=== PATIENT | female | born 1990 | race Asian ===

== ENCOUNTER 2021-03-20 14:42 | Outpatient (CLI) | payer OTHER ==
[2021-03-20 15:58] LABS: HCT - HEMATOCRIT 36.6 % (37.0-47.0); HGB - HEMOGLOBIN 12.5 g/dL (12.0-16.0); MEAN CORPUSCULAR HEMOGLOBIN 31.3 pg (27.0-31.0); MEAN CORPUSCULAR HGB CONC 34.2 g/dL (32.0-36.0); MEAN CORPUSCULAR VOLUME 91.5 fL (81.0-99.0); MEAN PLATELET VOLUME 9.1 fL (7.9-10.8); RED CELL DISTRIBUTION WIDTH 11.8 % (12.0-15.0); WHITE BLOOD COUNT 10.7 x10^3/uL (4.8-10.8)
== END 2021-03-20 14:43 | disposition home or self-care (01) ==
LOC: LAB 14:42
PROVIDERS: ATTEND Obstetrics & Gynecology
DX: Z34.90 Encounter for supervision of normal pregnancy, unspecified, unspecified trimester (principal); Z36.89 Encounter for other specified antenatal screening
CPT/HCPCS: 36415; 82950; 85027

== ENCOUNTER 2021-03-29 08:21 | Outpatient (CLI) | payer OTHER ==
[2021-03-29 09:26] LABS: GTT GLUCOSE,FASTING 90 mg/dL (70-100)
== END 2021-03-29 08:22 | disposition home or self-care (01) ==
LOC: LAB 08:21
PROVIDERS: ATTEND Obstetrics & Gynecology
DX: Z34.90 Encounter for supervision of normal pregnancy, unspecified, unspecified trimester (principal)
CPT/HCPCS: 36415; 82951; 82952

== ENCOUNTER 2021-05-17 16:49 | Outpatient (CLI) | payer OTHER ==
[2021-05-17 22:48] LABS: CHLAMYDIA TRACHOMATIS DNA NEGATIVE (NEGATIVE); NEISSERIA GONORRHOEAE DNA NEGATIVE (NEGATIVE); TRICHOMONAS VAGINALIS DNA NEGATIVE (NEGATIVE)
== END 2021-05-17 16:50 | disposition home or self-care (01) ==
LOC: LAB 16:49
PROVIDERS: ATTEND Obstetrics & Gynecology
DX: Z36.85 Encounter for antenatal screening for Streptococcus B (principal)
CPT/HCPCS: 87491; 87591; 87661; 87797

== ENCOUNTER 2021-06-08 06:34 | Inpatient (IN) | payer OTHER ==
[2021-06-08 07:26] LABS: RUPTURE OF MEMBRANES PLUS POSITIVE (NEGATIVE)
[2021-06-08] MEDS ORDERED: METHYLERGONOVINE 0.2 MG/ML VIAL IM PRN (07:38)
[2021-06-08] MEDS ORDERED: OXYTOCIN 10 UNIT/ML VIAL IM PRN (07:38)
[2021-06-08] MEDS ORDERED: SODIUM CHLORIDE FLUSH 0.9% 10 ML SYRINGE IVP PRN ×2 (07:38→10:11)
[2021-06-08] MEDS ORDERED: LABETALOL 20 MG/4 ML SYRINGE IVP PRN (07:38)
[2021-06-08] MEDS ORDERED: TERBUTALINE 1 MG/ML VIAL SUBQ PRN (07:38)
[2021-06-08] MEDS ORDERED: OXYTOCIN/SODIUM CHLORIDE 500 ML IV PRN ×2 (07:38→10:11)
[2021-06-08] MEDS ORDERED: TRANEXAMIC ACID IN NACL 1,000 MG/100 ML BAG IV PRN (07:38)
[2021-06-08] MEDS ORDERED: miSOPROStoL 200 MCG TABLET PR PRN (07:38)
[2021-06-08] MEDS ORDERED: CARBOPROST TROMETHAMINE 250 MCG/ML AMP IM PRN (07:38)
[2021-06-08] MEDS ORDERED: miSOPROStoL 200 MCG TABLET BC PRN (07:38)
[2021-06-08] MEDS ORDERED: fentaNYL 100 MCG/2 ML VIAL IVP PRN ×2 (07:38→09:37)
[2021-06-08] MEDS ORDERED: LIDOCAINE-MPF 1% 30 ML VIAL ID PRN (07:38)
--- NOTE | 2021-06-08 07:38 | HISTORY & PHYSICAL EXAMINATION ---
Admit History - Visit Reason Visit Reason: Contractions, Membranes rupture - : 4 Parity: 1021 Care: positive: [facility] Risk/History: positive: None - Mother's Labs Mother's Blood Type: positive: O Mother's RH: positive: Positive GBS: positive: Group B Step Negative Rubella Status: positive: Non-immune - Other Maternal History Other Maternal History: HPI: 31-year-old -0-2-1 at 39 weeks 1 day gestation presenting for leaking of fluid and contractions since early this morning. She has contraction approximately 5 minutes. [place] a gush of fluid on the way to hospital today.. She has good movement. No WOO/BV or RUQP. No vaginal bleeding. Denies nausea and vomiting. Denies urinary urgency or dysuria. All other symptoms reviewed and were negative except per HPI. Course ERIC BY LMP: 06/14/2021 Initial U/S: 10/26/2020 22 wks 3 days c/w LMP ( 06/12/2021) FINAL ERIC: 06/14/2021 O POSITIVE /Rubella :NON- IMMUNE VZV : IMMUNE Gentic testing: QUAD : NEGATIVE Serum Int 1 NEGATIVE for Trisomy 18 Serum Int 2 NEGATIVE for open spina bifida FAS: Low lying placenta, face not well visualized. Follow up showed low lying placenta resolved and face WNL. Glucola: 184. 3hr GTT WNL 90, 161, 109, 112 Influenza : per patient 12/2020 Covid vaccine : x2- Pfizer, Booster TDAP 03/20/2021 GBS & GC/CT : 05/17/2021 NEGATIVE HSV: No history in self or partner Breast pump Rx : per patient has one MOD: Repeat at 39 weeks with tubal ligation. pp contraception: BTL at time of . PMH History of molar Seasonal allergies PSH section D&C Sinus surgery [place] teeth removal OB History -0-2-1 1. 01/08/2013, 8 weeks, spontaneous 2. 03/01/2018, 38 weeks 6 days, section, failure to progress, 8 pound 6 ounces 3. 04/2019, molar , D&C SH Denies tobacco, alcohol, drugs Family History Mother: Diabetes hypertension, hyperlipidemia Father: Hypertension, hyperlipidemia Maternal grandmother: Diabetes, hypertension, cataracts Paternal grandfather: Hyperlipidemia, hypertension Allergies None Medications . All vitamins Physical exam: General: Alert, oriented, no acute distress Head: Normal cephalic atraumatic Eyes: PERRLA, extraocular motions intact. Respiratory: Normal rate of respiration. No accessory muscle use, normal respiratory effort. Cardiovascular: Regular rate and rhythm Abdomen: Gravid, nontender, nondistended Extremities: Normal range of motion Neuro: Oriented x3. Normal movements Psych: Appropriate mood and affect. Normal judgment and insight SVE: 2/60/-3 FHT: 120 bpm baseline, moderate variability, accelerations present, no decelerations. [place]: Quiescent ROM plus: Positive Plan 31-year-old -0-2-1 at 39 weeks 1 day gestation with spontaneous rupture of membranes 1 with previous section. 1. Spontaneous rupture of membranes -Admit to L&D, admit labs, plan for repeat section -2 g cefazolin IV 2. Previous low transverse section x1 3. Desires sterility -Plan for bilateral salpingectomy at time of 4. 39 weeks gestation 5. History of molar -Will trend hCGs Physical - Abdominal Exam Vital Signs: Temp Pulse Resp BP Pulse Ox 97.9 F 82 20 118/69 06/08/21 06:57 06/08/21 06:57 06/08/21 06:57 06/08/21 06:57
--- NOTE | 2021-06-08 07:46 | ANESTHESIA ---
Pre-Anesthesia VS, & Labs - Diagnosis ruptured membranes with active labor , previous section - Procedure repeat c section, BTL Vital Signs: Temp Pulse Resp BP Pulse Ox 36.6 C 82 20 118/69 06/08/21 06:57 06/08/21 06:57 06/08/21 06:57 06/08/21 06:57 Height: 5 ft 4 in Weight (kg): 86.183 kg Body Mass Index: 32.5 BMI Classification: Obese - NPO >8 hours - Is Patient ?: Yes Home Medications and Allergies Active Medications Acetaminophen (Acetaminophen 500 Mg Tablet) 500 mg PO ONCE HIRO Carboprost Tromethamine (Carboprost Tromethamine 250 Mcg/Ml Amp) 250 mcg IM .ONCE PRN PRN Reason: Hemorrhage Fentanyl (Fentanyl 100 Mcg/2 Ml Vial) 50 mcg IVP Q1H PRN PRN Reason: Severe Pain (score 7-10) Oxytocin/Sodium Chloride (Pitocin/Sodium Chloride) 500 mls @ 999 mls/hr IV PRN PRN; Protocol PRN Reason: POST- HEMORR PREVENTION Tranexamic Acid (Tranexamic 1,000 Mg/100ml-Nacl) 1,000 mg in 100 mls @ 600 mls/hr IV Q30M PRN PRN Reason: EBL >1200mL and within 3hr Cefazolin Sodium 2 gm/ Sodium (Chloride) 50 mls @ 100 mls/hr IV ONCE ONE Stop: 06/08/21 08:09 Labetalol HCl (Labetalol 20 Mg/4 Ml Syringe) 20 - 80 mg IVP Q10M PRN; Protocol PRN Reason: SBP> or= 160 OR DBP> or= 110 Lidocaine HCl (Lidocaine-Mpf 1% 30 Ml Vial) 30 ml ID ONCE PRN PRN Reason: PERINEAL REPAIR Stop: 06/09/21 07:39 Methylergonovine Maleate (Methylergonovine 0.2 Mg/Ml Vial) 0.2 mg IM .ONCE PRN PRN Reason: Hemorrhage Misoprostol (Misoprostol 200 Mcg Tablet) 600 mcg BC .ONCE PRN PRN Reason: Hemorrhage Misoprostol (Misoprostol 200 Mcg Tablet) 800 mcg SC .ONCE PRN PRN Reason: Hemorrhage Oxytocin (Oxytocin 10 Unit/Ml Vial) 10 unit IM .ONCE PRN PRN Reason: Step One if no IV access. Sodium Chloride (Sodium Chloride Flush 0.9% 10 Ml Syringe) 10 ml IVP PRN PRN PRN Reason: NEEDED PER PROVIDER ORDERS Sodium Chloride (Sodium Chloride Flush 0.9% 10 Ml Syringe) 10 ml IVP Q8H HIRO Terbutaline Sulfate (Terbutaline 1 Mg/Ml Vial) 0.25 mg SUBQ ONCE PRN PRN Reason: Tachystole Allergies/Adverse Reactions: Allergies Allergy/AdvReac Type Severity Reaction Status Date / Time No Known Drug Allergies Allergy Verified 06/08/21 07:44 Anes History & Medical History - Anesthetic History Anesthesia Complications: reports: No previous complications Family history of Anesthesia Complications: Denies Family history of Malignant Hyperthermia: Denies - Medical History Cardiovascular: reports: None Pulmonary: reports: None - Surgical History Gynecologic: reports: section - Obstetrical History : 4 Parity: 1021 Events: reports: None Exam General: Alert, Oriented x3, Cooperative, No acute distress Dental: WNL Mouth Openin Fingerbreadth Neck Mobility: Normal Mallampati classification: II Plan Anesthesia Type: Spinal, Transverse Abdominis Plane (TAP) Block (if requested) Regional Block: Per Surgeon's request for Post Op pain control Consent for Procedure(s) Verified and Reviewed: Yes Code Status: Attempt Resuscitation ASA classification: 2-Mild systemic disease Is this case an emergency?: Yes (urgent)
[2021-06-08] MEDS ORDERED: MORPHINE PF 5 MG/10 ML VIAL ONE (07:53)
[2021-06-08] MEDS ORDERED: PHENYLEPHRINE 10 MG/ML VIAL ONE (07:56)
[2021-06-08] MEDS ORDERED: OXYTOCIN 10 UNIT/ML VIAL ONE (07:59)
[2021-06-08] MEDS ORDERED: ACETAMINOPHEN 500 MG TABLET PO ONE (08:00)
[2021-06-08] MEDS ORDERED: SODIUM CHLORIDE FLUSH 0.9% 10 ML SYRINGE IVP SCH ×2 (08:00→17:00)
[2021-06-08] MEDS ORDERED: ePHEDrine 50 MG/ML VIAL IVP ONE (08:06)
[2021-06-08 08:09] LABS: BASOPHILS % (AUTO) 0.4 %; EOSINOPHILS # (AUTO) 0.1 10^3/uL (0.0-0.7); HCT - HEMATOCRIT 40.8 % (37.0-47.0); HGB - HEMOGLOBIN 13.7 g/dL (12.0-16.0); LYMPHOCYTES # (AUTO) 1.3 10^3/uL (1.5-3.5); LYMPHOCYTES % (AUTO) 12.4 %; MEAN CORPUSCULAR HEMOGLOBIN 29.8 pg (27.0-31.0); MEAN CORPUSCULAR HGB CONC 33.6 g/dL (32.0-36.0); MEAN CORPUSCULAR VOLUME 88.7 fL (81.0-99.0); MEAN PLATELET VOLUME 9.8 fL (7.9-10.8); MONOCYTES # (AUTO) 0.7 10^3/uL (0.0-1.0); MONOCYTES % (AUTO) 6.7 %; NEUTROPHILS % (AUTO) 78.6 %; PLT - PLATELET COUNT 228 10^3/uL (130-450); RED CELL DISTRIBUTION WIDTH 13.7 % (12.0-15.0); WHITE BLOOD COUNT 10.2 x10^3/uL (4.8-10.8)
[2021-06-08] MEDS ORDERED: LACTATED RINGERS 1,000 ML ONE (08:21)
[2021-06-08] MEDS ORDERED: GABAPENTIN 300 MG CAPSULE PO SCH (09:00)
[2021-06-08] MEDS ORDERED: ePHEDrine 50 MG/ML VIAL IVP PRN ×2 (09:37→09:39)
[2021-06-08] MEDS ORDERED: ATROPINE ABBOJECT 1 MG/10 ML SYRINGE IVP PRN (09:37)
[2021-06-08] MEDS ORDERED: ONDANSETRON 4 MG/2 ML VIAL IVP PRN ×2 (09:37→09:39)
[2021-06-08] MEDS ORDERED: NALOXONE 0.4 MG/ML VIAL IVP PRN ×2 (09:37→09:39)
[2021-06-08] MEDS ORDERED: METOCLOPRAMIDE 10 MG/2 ML VIAL IVP PRN ×2 (09:37→09:39)
[2021-06-08] MEDS ORDERED: HYDROmorphone 0.5 MG/0.5 ML SYRINGE IVP PRN (09:37)
[2021-06-08] MEDS ORDERED: MORPHINE 2 MG/ML CARPUJECT IVP PRN (09:37)
[2021-06-08] MEDS ORDERED: NALBUPHINE 10 MG/ML AMP IVP PRN (09:39)
[2021-06-08] MEDS ORDERED: ROPIVACAINE 0.5% PF 20 ML AMPULE ONE (09:39)
[2021-06-08] MEDS ORDERED: diphenhydrAMINE INJ 50 MG/ML VIAL IVP PRN (09:39)
[2021-06-08] MEDS ORDERED: MORPHINE PF 5 MG/10 ML VIAL IT ONE (09:39)
[2021-06-08] MEDS ORDERED: LACTATED RINGERS 1,000 ML IV SCH ×2 (10:00→11:00)
[2021-06-08] MEDS ORDERED: SIMETHICONE CHEW 80 MG TABLET PO PRN (10:11)
--- NOTE | 2021-06-08 10:15 | OPERATIVE REPORT ---
Operative Report - General Admit Date: 06/08/21 Procedure Date: 06/08/21 Planned Procedure: Repeat low transverse section Bilateral salpingectomy Pre-Op Diagnosis: SROM, Repeat section, 39 weeks gestation, desires sterility Procedure Performed: Repeat low-transverse section bilateral salpingectomy Post Op Diagnosis: Status post repeat low transverse section, bilateral Salpingectomy - Procedure Note Primary Surgeon: Memo Cazares MD Secondary Surgeon: Cleo Crowe MD Anesthesia Provider: Ksenia Lewis CRNA Anesthesia Technique: Spinal Pathology: Bilateral uterine tubes Estimated Blood Loss (mL): 500 Complications: None - Other Other Information/Narrative: Patient presented at 39 weeks 1 day gestation complaining of contractions and leaking fluid. Although contractions are noted on the monitor, she was noted to be 2 cm which is a change from her exam last week in clinic when she was closed. ROM plus was positive on arrival. section was recommended. Risks, benefits and alternatives were discussed including but not limited to infection, bleeding that may require blood products or hysterectomy for life saving measures, injury to surrounding organs including but not limited to bowel, bladder, ureters, tubes and ovaries and/or the baby. Should injury occur it could require longer/additional surgery to repair. The patient stated understanding and desired to proceed. All questions were answered posed by patient. Prior to being taken to the OR, two grams of cefazolin IV was administered. The patient was taken to the operating room where regional anesthesia was found to be adequate. She was then prepared and draped in the usual sterile fashion in the dorsal supine position with a leftward tilt displacing the uterus. [place] was draining to gravity. SCDs were on bilateral lower extremities. A pfannenstiel skin incision was then made and removed the previous keloid with a scalel. The incision was carried through to the underlying layer of fascia. The fascia was incised in the midline and the incision extended laterally with the Piña scissors. The superior aspect of the facial incision was then grasped with the Nba clamps, elevated and the underlying rectus muscles dissected off sharply. Attention was then turned to the inferior aspect of this incision which in a similar fashion was grasped, elevated with the Nba clamps and the rectus muscle dissected off sharply. The rectus muscles were in the midline. The peritoneum identified, grasped with the pick-ups and entered sharply with the Metzenbaum scissors. There was a uterine adhesion of the previous bladder flap that had an opening that we could pass to free ties, ligate, and cut. This freed the uterus from the previous adhesions. The peritoneal incision was then extended superiorly and inferiorly with good visualization of the bladder. The bladder blade was inserted. The lower uterine segment was identified and incised in a transverse fashion with the scalpel. The uterine incision was then extended bluntly laterally. Artificial rupture of membranes demonstrated clear fluid. The bladder blade was removed. The fetus was in a cephalic presentation. The infants head delivered atraumatically. The anterior shoulders were delivered followed by the posterior shoulders then the remainder of the body. The infants mouth and nose were bulb suctioned. The umbilical cord was clamped times two and cut. The infant was taken to the recovery room for transition. Cord blood gases were obtained. The placenta was removed with gentle traction. 20 units of oxytocin were added to IVF and allowed to run freely. The uterus was exteriorized and cleared of all clots and debris. The uterine incision was inspected and found to be without any extensions and was repaired with 0 Vicryl in a running, locked fashion. A second imbricating layer was performed. Upon inspection, the repaired hysterotomy was found to be hemostatic. After the hysterotomy was repaired, attention was then turned to the tubal portion the procedure. The right tube was grasped at the fimbriated end with a Jamil clamp, and a LigaSure device was used to cauterize and cut the mesosalpinx along the edge of the tube and transected at the cornua. This was repeated on the patient's left side. The uterus was firm and returned to the abdomen. The gutters were cleared of all clots and debris. The peritoneum was closed with a running suture of 2-0 Vicryl. The muscles were reapproximated with 2-0 Vicryl with horizontal mattress sutures. The fascia was reapproximated with 0 Vicryl in a running fashion. The subcutaneous tissue was closed with 2-0 Vicryl. The skin was closed in a subcuticular fashion with 4-0 Monocryl. The patient tolerated the procedure well. Sponge, lap and needle counts were correct times three. The patient was taken to the recovery room in stable condition.
[2021-06-08] MEDS ORDERED: LACTATED RINGERS 1,000 ML IV ONE (10:26)
[2021-06-08] MEDS: ACETAMINOPHEN 500 MG TABLET PO SCH ×2 (14:08→21:39)
--- NOTE | 2021-06-08 14:27 | ANESTHESIA POST OP EVALUATION ---
Anesthesia Post Eval - Post Anesthesia Eval Vitals: Last Vital Signs Temp 37 C 06/08/21 14:00 Pulse 79 06/08/21 14:00 Resp 18 06/08/21 14:00 BP 125/73 06/08/21 14:00 Pulse Ox 100 06/08/21 14:00 CV Function Including HR & BP: Stable Pain Control: Satisfactory Nausea & Vomiting: Negative Mental Status: Baseline Respiratory Status: Airway Patent Hydration Status: Satisfactory Anesthesia Complications: None
[2021-06-08] MEDS: KETOROLAC 30 MG/ML VIAL IVP SCH ×2 (15:54→21:40)
[2021-06-08] MEDS: DOCUSATE SODIUM 100 MG CAPSULE PO SCH (21:41)
[2021-06-09] MEDS: KETOROLAC 30 MG/ML VIAL IVP SCH (04:29)
[2021-06-09 06:32] LABS: BASOPHILS % (AUTO) 0.3 %; EOSINOPHILS # (AUTO) 0.1 10^3/uL (0.0-0.7); EOSINOPHILS % (AUTO) 1.1 %; HCT - HEMATOCRIT 36.6 % (37.0-47.0); HGB - HEMOGLOBIN 12.1 g/dL (12.0-16.0); LYMPHOCYTES % (AUTO) 8.8 %; MEAN CORPUSCULAR HEMOGLOBIN 29.7 pg (27.0-31.0); MEAN CORPUSCULAR HGB CONC 33.1 g/dL (32.0-36.0); MEAN CORPUSCULAR VOLUME 89.9 fL (81.0-99.0); MEAN PLATELET VOLUME 10.3 fL (7.9-10.8); MONOCYTES # (AUTO) 0.9 10^3/uL (0.0-1.0); MONOCYTES % (AUTO) 8.1 %; NEUTROPHILS # (AUTO) 9.2 10^3/uL (1.5-6.6); NEUTROPHILS % (AUTO) 80.8 %; PLT - PLATELET COUNT 195 10^3/uL (130-450); RED BLOOD COUNT 4.07 10^6/uL (4.20-5.40); RED CELL DISTRIBUTION WIDTH 14.1 % (12.0-15.0); WHITE BLOOD COUNT 11.4 x10^3/uL (4.8-10.8)
[2021-06-09] MEDS: oxyCODONE 5 MG TABLET PO PRN ×3 (06:32→20:43)
[2021-06-09] MEDS: ONDANSETRON ODT 4 MG TABLET TL PRN ×3 (06:33→20:43)
[2021-06-09] MEDS: ACETAMINOPHEN 500 MG TABLET PO SCH ×2 (06:33→14:56)
--- NOTE | 2021-06-09 09:36 | PROVIDER PROGRESS NOTE ---
Subjective - Prog Note Date Prog Note Date: 06/09/21 Prog Note Time: 09:47 - Subjective Pt reports feeling: Improved Subjective: Comfortable. Appropriate lochia. Ambulating. Voiding. Tolerating regular diet. and formula feeding. Objective - Vital Signs/Intake & Output Vital Signs: Vital Signs x48h Temp Pulse Resp BP Pulse Ox 06/09/21 07:43 71 18 143/82 H 100 06/09/21 02:00 98.6 F 62 18 125/74 Intake & Output: Intake & Output 06/06/21 06/07/21 06/08/21 06/09/21 23:59 23:59 23:59 23:59 Intake Total 500 450 Output Total 162 825 Balance -7422 -588 - Objective General Appearance: positive: No acute distress Respiratory: positive: No respiratory distress Cardiovascular: positive: Regular rate & rhythm Abdomen: positive: Other (soft, appropriately tender, dressing c/d/i (small marked areas on dressing, stable)) Extremities: positive: Non-tender Neurologic/Psychiatric: positive: Oriented x3 - Lab Results Fish Bones: 06/09/21 06:15 Other Labs: Lab Results x24hrs 06/09/21 06/08/21 06/08/21 Range/Units 06:15 08:31 08:00 WBC 11.4 H (4.8-10.8) x10^3/uL RBC 4.07 L (4.20-5.40) 10^6/uL Hgb 12.1 (12.0-16.0) g/dL Hct 36.6 L (37.0-47.0) % MCV 89.9 (81.0-99.0) fL MCH 29.7 (27.0-31.0) pg MCHC 33.1 (32.0-36.0) g/dL RDW 14.1 (12.0-15.0) % Plt Count 195 (130-450) 10^3/uL MPV 10.3 (7.9-10.8) fL Neut # (Auto) 9.2 H (1.5-6.6) 10^3/uL Lymph # (Auto) 1.0 L (1.5-3.5) 10^3/uL [place] # (Auto) 0.9 (0.0-1.0) 10^3/uL Eos # (Auto) 0.1 (0.0-0.7) 10^3/uL Baso # (Auto) 0.0 (0.0-0.1) 10^3/uL Absolute Nucleated RBC 0.00 x10^3/uL Nucleated RBC % 0.0 /100WBC Blood Type O POSITIVE Blood Type Recheck O POSITIVE Antibody Screen NEGATIVE Assessment/Plan - Problem List (1) Maternal care for scar from previous delivery Impression: 31yo s/p RCD/BTL 4/1 POD#1 doing well - Routine /postoperative care - Anticipate discharge tomorrow Qualifiers: Previous scar type: low transverse Qualified Code(s): O34.211 - Maternal care for low transverse scar from previous delivery
[2021-06-09] MEDS: DOCUSATE SODIUM 100 MG CAPSULE PO SCH ×2 (10:23→20:43)
[2021-06-09] MEDS: IBUPROFEN 600 MG TABLET PO SCH ×2 (10:23→16:37)
[2021-06-10] MEDS: ACETAMINOPHEN 500 MG TABLET PO SCH ×3 (00:16→08:17)
[2021-06-10] MEDS: IBUPROFEN 600 MG TABLET PO SCH ×3 (00:17→12:40)
[2021-06-10] MEDS: DOCUSATE SODIUM 100 MG CAPSULE PO SCH (08:17)
[2021-06-10 09:50] VITALS: BP 130/67
--- NOTE | 2021-06-10 10:50 | Discharge Plan ---
Discharge Plan Problem Reviewed?: Yes Disposition: Home, Self Care Condition: Good Diet: Regular Activity Restrictions: Activity as Tolerated (Pelvic rest for 6 weeks or until bleeding has stopped.) Shower Restrictions: No (Keep incision clean and dry.) Driving Restrictions: Yes (No driving until pain controlled without narcotics.) Weight Bearing: Full Weight No Smoking: If you smoke, Please STOP! Call for help. Follow-up with: Memo Cazares MD [Provider Admit Priv/Credential] -
--- NOTE | 2021-06-10 10:54 | DISCHARGE SUMMARY ---
"Discharge Summary Admit Date: 06/08/21 Discharge Date: 06/10/21 Discharging Provider: Cleo Crowe DO Code Status: Attempt Resuscitation - DIAGNOSES Admission Diagnoses: 31yo at 39.1w admitted with SROM, prior CD x1. - CONSULTS | PROCEDURES Consultations: Anesthesia Procedures: Spinal Repeat CD, bilateral salpingectomy - HOSPITAL COURSE Hospital Course: 31yo at 39.1 admitted on 4.1 for SROM. Hx CDx1. Desiring sterilization. Uncomplicated RCD/BS performed, see operative report. She is recovering appr opriately and meets criteria for discharge, feels ready to go home. and formula feeding. Mood is good. and postoperative precautions reviewed, all questions answered. She will follow up with primary OB . Needs HCG monitoring for history of molar . - ALLERGIES Allergies/Adverse Reactions: Allergies Allergy/AdvReac Type Severity Reaction Status Date / Time No Known Drug Allergies Allergy Verified 06/08/21 07:44 - MEDICATIONS Home Medications Other | Comments: Ibuprofen 800mg every 6-8h x1w Acetaminophen 975mg every 6-8h x1w Colace BID Oxycodone 5mg q6h x3d vitamins - PHYSICAL EXAM AT DISCHARGE General Appearance: positive: No acute distress Respiratory: positive: No respiratory distress Cardiovascular: positive: Regular rate & rhythm Abdomen: positive: Other (soft, appropriately tender, incision c/d/i) Extremities: positive: Non-tender Neurologic/Psychiatric: positive: Oriented x3 - LABS Result Diagrams: 06/09/21 06:15 - FOLLOW UP Follow Up: Follow up with by 2w - TIME SPENT Time Spent in Discharge (Minutes): 25"
--- NOTE | 2021-06-10 13:51 | Labor Flowsheet ---
Labor Flowsheet Datetime Report Generated by CPN: 06/10/2021 13:51 Datetime: 06/08/2021 12:26 VAGINAL EXAM Membranes Ruptured Date/Time: 06/08/2021 06:40 Membranes Rupture Method: Spontaneous Amniotic Fluid Color: Clear Amniotic Fluid Amount: Small Datetime: 06/08/2021 12:05 Stage of : Recovery VITAL SIGNS NBP Sys/Cailin/Mean (mmHg): 126 : 88 Pulse: 78 Respirations: 18 SpO2 (%): 100 Datetime: 06/08/2021 11:10 Temperature (C): 36.9 Temperature Route: Oral
== END 2021-06-10 13:05 | disposition home or self-care (01) | DRG 785 ==
LOC: WFO 06:34 → FBP 06:39 → WFO 07:38 → FBP 07:39
PROVIDERS: ADMIT Obstetrics & Gynecology; ATTEND Obstetrics & Gynecology
PROC: 0UB70ZZ Excision of Bilateral Fallopian Tubes, Open Approach (ICD-10-PCS; 2021-06-08)
PROC: 10D00Z1 Extraction of Products of Conception, Low, Open Approach (ICD-10-PCS; principal; 2021-06-08 08:15)
DX: O34.211 Maternal care for low transverse scar from previous cesarean delivery (principal); Z3A.39 39 weeks gestation of pregnancy; Z37.0 Single live birth; Z30.2 Encounter for sterilization
CPT/HCPCS: 36415; 59025; 84112; 85025; 86850; 86900; 86901; A9270; J1200; J2274; J7040; J7120; Q0162; 99215